=== PATIENT | female | born 1980 | race Caucasian/White ===

== ENCOUNTER 2017-06-02 10:51 | Emergency (ER) | payer BC ==
[~2017-06-02] VITALS: Ht 162.6 cm; Wt 78.9 kg
--- NOTE | 2017-06-02 11:00 | NUR ---
C/O GENERALIZED MUSCLE SPASM ALL OVER BODY X1 DAY [employer]. HAD THYROIDECTOMY X2 DAYS [employer], NAD NOTED, VSS, WAITING FOR MD FARAH.
[2017-06-02 13:11] LABS: CALCIUM, SERUM 7.3 mg/dL (8.5-10.1); CREATININE 0.7 mg/dL (0.6-1.3)
[2017-06-02 13:16] LABS: ALBUMIN 3.8 g/dL (3.4-5.0); BILIRUBIN,TOTAL 0.3 mg/dL (0.2-1.0); TOTAL PROTEIN, SERUM 8.2 g/dL (6.4-8.2)
[2017-06-02 13:24] LABS: THYROID STIMULATING HORMONE 3.131 uIU/mL (0.358-3.74)
[2017-06-02] MEDS ORDERED: IV NS 0.9% 1,000 ML BAG IV ONE (13:30)
[2017-06-02] MEDS ORDERED: Calcium Gluconate 1GM/10ML 4.65 MEQ in IV D5W 50 ML IV ONE (13:30)
[2017-06-02 15:19] VITALS: BP 137/74
== END 2017-06-02 15:20 | disposition home or self-care (01) ==
LOC: ER 10:52
DX: E83.51 Hypocalcemia (principal); M62.838 Other muscle spasm; E89.0 Postprocedural hypothyroidism
CPT/HCPCS: 36415; 80048; 80076; 83735; 84439; 84443; 84481; 93005; 96365; 99285; A4606; J0610; J7030; J7060; Z7610